=== PATIENT | male | born 1970 | race Caucasian/White ===

== ENCOUNTER 2021-01-23 12:27 | Emergency (ER) | payer OTHER ==
[~2021-01-23] VITALS: Ht 172.7 cm; Wt 70.0 kg
[2021-01-23 12:27] VITALS: BP 115/77
[2021-01-23] MEDS ORDERED: ACETAMINOPHEN 325 MG TABLET PO ONE (12:45)
--- NOTE | 2021-01-23 12:53 | PHYS DOC ---
General Adult EDM: Chief Complaint: COUGH HPI: HPI: Patient is a 50-year-old male being seen in the ER for body aches, headache, nonproductive cough. Patient denies any sick exposures, fever. He states that he has chronic shortness of breath. Patient's vital signs are stable and he is in no acute distress. (ISAAK MARINELLI APRN) Review of Systems: Review of Systems: 14 body systems of the review of systems have been reviewed. See HPI for pertinent positive and negative responses, otherwise all other systems are negative, nonpertinent or noncontributory (ISAAK MARINELLI APRN) Current Medications: Current Meds: Current Medications Medications (Trade) Dose Ordered Sig/Eliazar Start Time Stop Time Status Last Admin Dose Admin Acetaminophen (Tylenol) 650 mg 1X ONCE 01/23/21 12:45 01/23/21 12:46 DC 01/23/21 12:41 650 MG (ISAAK MARINELLI APRN) Allergies: Allergies: Allergies Coded Allergies Type Severity Reaction Last Updated Verified No Known Drug Allergies 01/23/21 No (ISAAK MARINELLI APRN) Physical Exam: PE: Constitutional: Well developed, well nourished, no acute distress, non-toxic appearance. [] HENT: Normocephalic, atraumatic Eyes: PERRL, EOMI, conjunctiva normal, no discharge. [] Neck: Normal range of motion, no stridor Cardiovascular:Heart rate regular rhythm, no murmur [] Lungs & Thorax: Bilateral breath sounds clear to auscultation [] Abdomen: Soft Skin: Warm, dry, no erythema, no rash. [] Back: Normal range of motion Extremities: No tenderness, no cyanosis, no clubbing, ROM intact, no edema. [] Neurologic: Alert and oriented X 3, normal motor function, normal sensory func tion, no focal deficits noted. [] Psychologic: Affect normal, judgement normal, mood normal. [] (ISAAK MARINELLI APRN) EKG: EKG: [] (ISAAK MARINELLI APRN) Radiology/Procedures: Radiology/Procedures: []PROCEDURE: CHEST AP ONLY XR CHEST 1V History: Reason: soa / Spl. Instructions: / History: Comparison: None. Findings: Patchy left medial basilar opacity. No pleural effusion. No pneumothorax. Normal heart size. Impression: 1. Patchy left medial basilar opacity, concerning for pneumonia. Recommend follow-up to ensure resolution. Electronically signed by: Oni Adorno DO (01/23/2021 1:22 PM) [facility] DICTATED AND SIGNED BY: ONI ADORNO DO DATE: 01/23/21 1321 CC: ISAAK MARINELLI APRN; ROBBI KATZ MD ~MTH0 0 (ISAAK MARINELLI APRN) Heart Score: C/O Chest Pain: No Risk Factors: Risk Factors: DM, Current or recent (<one month) smoker, HTN, HLP, family history of CAD, obesity. Risk Scores: Score 0 - 3: 2.5% MACE over next 6 weeks - Discharge Home Score 4 - 6: 20.3% MACE over next 6 weeks - Admit for Clinical Observation Score 7 - 10: 72.7% MACE over next 6 weeks - Early Invasive Strategies (ISAAK MARINELLI APRN) Course & Med Decision Making: Course & Med Decision Making Pertinent Labs and Imaging studies reviewed. (See chart for details) [] Patient is a 50-year-old male being seen in the ER for body aches, headache and a nonproductive cough. Patient was Covid tested in the ER will be notified of his results when they become available. Patient had a temperature of 100, he was given Tylenol in the ER. Patient had a chest x-ray performed it pneumonia. Patient be treated with an antibiotic. Patient's vital signs are stable and he is in no acute distress. Patient advised to follow-up with his primary care provider. I discussed with patient all findings and diagnostic testing as well as the need to follow-up with PCP for further evaluation and treatment or return to the ER if any new or worsening symptoms. Strict return precautions were also discussed at length. Patient voiced understanding and agreement with the plan. Patient is hemodynamically stable at the time of disposition. (ISAAK MARINELLI APRN) Course & Med Decision Making I was the Attending physician on the above date of service of this patient. This patient was evaluated, examined, treated, and dispositioned from the emergency department by the mid-level practitioner. Although I was working at the time , no assistance was requested. Electronically signed, Jessica Morrissey DO (JESSICA MORRISSEY DO) Chidi Disclaimer: Chidi Disclaimer: This electronic medical record was generated, in whole or in part, using a voice recognition dictation system. (ISAAK MARINELLI APRN) Departure Departure: Impression: Primary Impression: Person under investigation for COVID-19 Additional Impression: Pneumonia Qualified Codes: J18.9 - Pneumonia, unspecified organism Disposition: HOME / SELF CARE / HOMELESS Condition: GOOD Referrals: ROBBI KATZ MD (PCP) Patient Instructions: Cough, Adult Additional Instructions: You were seen in the ER for body aches, headache, cough. You are tested in the ER for COVID-19. You will be notified of those results when they become available in approximately 2 days. Please self isolate until you receive these results. Chest x-ray was performed to rule out pneumonia and it was positive for pneumonia. This will be treated with an antibiotic. Please start and finish this completely. You were given a dose of Tylenol in the ER. Please continue to take Tylenol and ibuprofen at home for pain or fevers. Increase your fluids and rest. You can take Delsym [id number] for your cough. Follow-up with your primary care provider tomorrow regarding your ER visit. If you develop shortness of breath, chest pain, high fevers refractory to treatment, intractable nausea or vomiting return to the ER. EMERGENCY DEPARTMENT GENERAL DISCHARGE INSTRUCTIONS Thank you for coming to [facility] (ED) today and trusting us with you care. We trust that you had a positivie experience in our Emergency Department. If you wish to speak to the department management, you may call the director at [phone]. YOUR FOLLOW UP INSTRUCTIONS ARE FOLLOWS: 1. Do you have a private Doctor? If you do not have a private doctor, please ask for a resource list of physicians or clinics that may be able to assist you with follow up care. 2. The Emergency Physician has interpreted your x-rays. The X-Ray specialist will also review them. If there is a change in the findings, you will be notified in 48 hours when at all possible. 3. A lab test or culture has been done, your results will be reviewed and you will be notified if you need a change in treatment. ADDITIONAL INSTRUCTIONS AND INFORMATION: 1. Your care today has been supervised by a physician who is specially trained in emergency care. Many problems require more than one evaluation for a complete diagnosis and treatment. We recommend that you schedule your follow up appointment as recommended to ensure complete treatment of you illness or injury. If you are unable to obtain follow up care and continue to have a problem, or if your condition worsens, we recommend that you return to the ED. 2. We are not able to safely determine your condition over the phone nor are we able to give sound medical advice over the phone. For these safety reasons, if you call for medical advice we will ask you to come to the ED for further evaluation. 3. If you have any questions regarding these discharge instructions please call the ED at [phone]. SAFETY INFORMATION: In the interest of safety, wellness, and injury prevention; we encourage you to wear your sealbelt, if you smoke; quite smoking, and we encourage family to use a protective helmet for bicycling and other sporting events that present an increased risk for head injury. IF YOUR SYMPTOMS WORSEN OR NEW SYMPTOMS DEVELOP, OR YOU HAVE CONCERNS ABOUT YOUR CONDITION; OR IF YOUR CONDITION WORSENS WHILE YOU ARE WAITING FOR YOUR FOLLOW UP APPOINTMENT; EITHER CONTACT YOUR PRIMARY CARE DOCTOR, THE PHYSICIAN WHOSE NAME AND NUMBER YOU WERE GIVEN, OR RETURN TO THE ED IMMEDIATELY. Scripts Azithromycin (AZITHROMYCIN TABLET) 250 Mg Tablet 1 PKG PO UD for pneumonia for 5 Days, #6 TAB 0 Refills 2 the first day followed by 1 for days 2-5 Prov: ISAAK MARINELLI APRN 01/23/21 ISAAK MARINELLI APRN Jan 23, 2021 12:53 JESSICA MORRISSEY DO Jan 24, 2021 06:52
--- NOTE | 2021-01-23 13:24 | RAD ---
XR CHEST 1V History: Reason: soa / Spl. Instructions: / History: Comparison: None. Findings: Patchy left medial basilar opacity. No pleural effusion. No pneumothorax. Normal heart size. Impression: 1. Patchy left medial basilar opacity, concerning for pneumonia. Recommend follow-up to ensure resol ution. Electronically signed by: Oni Adorno DO (01/23/2021 1:22 PM) [facility] [place]
[2021-01-23] MEDS ORDERED: AZIT250T6 PO (13:43)
--- NOTE | 2021-01-24 08:57 | NUR ---
IP: Attempted to contact pt concerning covid results. No answer, no voicemail box.
--- NOTE | 2021-01-25 09:30 | NUR ---
IP: Informed pt of positive covid results and the need to quarantine for 10 days. Pt verbalized understanding.
== END 2021-01-23 13:55 | disposition home or self-care (01) ==
LOC: ER 12:27
DX: U07.1 COVID-19 (principal); J18.9 Pneumonia, unspecified organism
CPT/HCPCS: 71045; 99284; C9803; U0003